=== PATIENT | female | born 1995 | race Asian ===

== ENCOUNTER 2021-04-26 14:39 | Emergency (ER) | payer OTHER ==
[~2021-04-26] VITALS: Ht 160 cm; Wt 60.3 kg
--- NOTE | 2021-04-26 14:50 | NUR ---
BIBS FOR C/O N/V SINCE THIS MORNING. DENIES PAIN. DENIES CHILLS/FEVER. PATIENT PLACED COMFORTABLY IN BED. VITALS CHECKED.
--- NOTE | 2021-04-26 14:59 | NUR ---
URINE SPECIMEN SENT TO LAB
--- NOTE | 2021-04-26 15:00 | NUR ---
SEEN BY PA AT BEDSIDE
[2021-04-26] MEDS ORDERED: IV NS 0.9% 1,000 ML BAG IV ONE ×2 (15:30→17:00)
[2021-04-26] MEDS ORDERED: PANTOPRAZOLE 40 MG VIAL IV ONE (15:30)
[2021-04-26] MEDS ORDERED: ONDANSETRON HCL/PF 4 MG/2 ML VIAL IVP ONE (15:30)
--- NOTE | 2021-04-26 15:31 | NUR ---
IV CANNULA INSERTED ON LEFT AC USING G20 NEEDLE. BLOOD DRAWN AND SENT TO LAB
--- NOTE | 2021-04-26 15:32 | NUR ---
MAURICE OF ABDOMEN DONE AT BEDSIDE.
[2021-04-26] MEDS ORDERED: PANTOPRAZOLE 40 MG VIAL ONE (15:34)
[2021-04-26] MEDS ORDERED: ONDANSETRON HCL/PF 4 MG/2 ML VIAL ONE (15:34)
[2021-04-26 16:08] LABS: BASOPHILS % (AUTO) 0.1 % (0.0-2.0); EOSINOPHILS % (AUTO) 0.4 % (0.0-6.0); HEMATOCRIT 42 % (33-45); HEMOGLOBIN 13.7 g/dL (11.5-14.8); LYMPHOCYTES # (AUTO) 1.1 K/uL (0.8-4.8); LYMPHOCYTES % (AUTO) 6.9 % (20.0-44.0); MEAN CORPUSCULAR HGB CONC 33 g/dl (31.0-36.0); MEAN CORPUSCULAR VOLUME 82 fL (82-100); MONOCYTES # (AUTO) 0.4 K/uL (0.1-1.30); MONOCYTES % (AUTO) 2.7 % (2.0-12.0); NEUTROPHILS # (AUTO) 14.4 K/uL (1.8-8.9); NEUTROPHILS % (AUTO) 89.9 % (43.0-81.0); PLATELET COUNT (AUTO) 150 K/uL (150-450); RED BLOOD CELL COUNT(AUTO) 5.12 MIL/uL (4.0-5.2); WHITE BLOOD COUNT (AUTO) 16.1 K/uL (4.3-11.0)
[2021-04-26 16:19] LABS: BILIRUBIN,URINE NEGATIVE (NEGATIVE); COLOR,URINE YELLOW (YELLOW); LEUKOCYTE ESTERASE ,URINE NEGATIVE (NEGATIVE); NITRITE, URINE NEGATIVE (NEGATIVE); PH,URINE 5.5 (5.0-8.0); PROTEIN,URINE NEGATIVE (NEGATIVE); UGLUCOSE NEGATIVE (NEGATIVE); UROBILINOGEN,URINE 0.2 EU/dL (0.2)
[2021-04-26 16:20] LABS: CALCIUM, SERUM 9.4 mg/dL (8.5-10.1); CREATININE 0.7 mg/dL (0.6-1.3); POTASSIUM 3.8 mmol/L (3.5-5.1)
[2021-04-26 16:28] LABS: ALBUMIN 4.2 g/dL (3.4-5.0); BILIRUBIN,DIRECT 0.1 mg/dL (0.0-0.2); BILIRUBIN,TOTAL 0.4 mg/dL (0.2-1.0); TOTAL PROTEIN, SERUM 8.7 g/dL (6.4-8.2)
[2021-04-26 16:45] LABS: BACTERIA,URINE None seen /HPF (None Seen); RBC,URINE 0-2 /HPF (0-2); SQUAMOUS EPITHELIAL CELL,UR Moderate /HPF (None Seen)
[2021-04-26] MEDS ORDERED: KETOROLAC TROMETHAMINE INJ 30 MG/ML VIAL IV ONE (17:00)
--- NOTE | 2021-04-26 17:14 | NUR ---
THERE IS AN ORDER FOR TORADOL. PATIENT CLAIMED THAT SHE IS NOT IN PAIN AND DOESN'T WANT IT AT THE MOMENT.
[2021-04-26] MEDS ORDERED: ONDA4TAB5 PO (17:28)
--- NOTE | 2021-04-26 17:38 | NUR ---
Patient discharged to home in stable condition. Written and verbal after care instructions given. Patient verbalizes understanding of instruction.
[2021-04-26 17:41] VITALS: BP 118/74
== END 2021-04-26 17:41 | disposition home or self-care (01) ==
LOC: ER 14:39
DX: R10.13 Epigastric pain (principal); R11.2 Nausea with vomiting, unspecified
CPT/HCPCS: 36415; 74176; 76700; 80048; 80076; 81001; 83690; 84703; 85025; 96361; 96374; 96375; 99284; C9113; J2405; J7030 ×2